=== PATIENT | male | born 1950 | race Caucasian/White ===

== ENCOUNTER 2023-09-26 14:24 | Inpatient (IN) ==
[2023-09-26] MEDS ORDERED: IOPAMIDOL 100 ML BOTTLE IV ONE (14:25)
[2023-09-26] MEDS ORDERED: DILTIAZEM 25 MG/5 ML VIAL IV ONE ×3 (14:28→14:49)
[2023-09-26 14:40] LABS: POC Calcium, Ionized 0.92 (1.16-1.32); POC Creatinine 1.5 (0.6-1.2); POC Potassium 3.9 (3.3-5.1)
[2023-09-26 14:46] LABS: POC Calcium, Ionized 0.93 (1.16-1.32); POC Creatinine 1.6 (0.6-1.2); POC Potassium 3.8 (3.3-5.1)
[2023-09-26 14:48] LABS: POC INR 2.8 (0.8-1.2); POC Pro Time 32.2 (11.9-14.5)
[2023-09-26] MEDS ORDERED: ASPIRIN 81 MG TAB.CHEW CHEWED ONE (14:58)
[2023-09-26] MEDS ORDERED: 0.9 % SODIUM CHLORIDE 1,000 ML IV ONE (14:58)
[2023-09-26] MEDS ORDERED: OSELTAMIVIR PHOSPHATE 75 MG CAPSULE PO ONE (15:04)
[2023-09-26 15:24] LABS: Basophils # (Auto) 0.05 K/mcL (0.00-0.30); Basophils % (Auto) 0.2 % (0.0-2.0); Eosinophils # (Auto) 0 K/mcL (0.00-0.70); Eosinophils % (Auto) 0 % (0.0-7.0); Hematocrit 46.5 % (40.1-51.0); Hemoglobin 16.2 g/dL (13.7-17.5); Lymphocytes # (Auto) 1.26 K/mcL (1.50-4.80); Lymphocytes % (Auto) 6.2 % (15.5-49.0); Mean Cell Volume 88.9 fL (80.0-100.0); Mean Corpuscular HGB Conc 34.8 g/dL (31.0-36.0); Mean Platelet Volume 10.6 fL (8.8-12.5); Monocytes # (Auto) 1.83 K/mcL (0.10-0.90); Platelet Count 126 K/mcL (140-440); RBC 5.23 M/mcL (4.63-6.08); Red Cell Distribution Width 12.7 % (11.5-14.5); WBC 20.4 K/mcL (4.5-11.0)
[2023-09-26] MEDS ORDERED: cefTRIAXone 2 GM in DEXTROSE 5% IN WATER 50 ML IV ONE (15:25)
[2023-09-26] MEDS ORDERED: AZITHROMYCIN 250 MG TABLET PO ONE (15:25)
[2023-09-26 15:49] LABS: Neutrophils % (Auto) 81.8 % (38.0-78.0)
[2023-09-26 16:04] LABS: ALT/SGPT 37 U/L (<40); AST/SGOT 233 U/L (<40); Albumin 3.6 gm/dL (3.2-5.2); Alkaline Phosphatase 80 U/L (39-117); Bilirubin,Direct 0.5 mg/dL (<0.3); Bilirubin,Total 3.3 mg/dL (0.1-1.0); Globulin 3.5 gm/dL (2.2-3.7)
[2023-09-26] MEDS ORDERED: IPRATROPIUM/ALBUTEROL 3 ML AMPUL.NEB NEB ONE (16:08)
[2023-09-26] MEDS ORDERED: DILTIAZEM 125 MG in DEXTROSE 5% IN WATER 100 ML IV SCH (16:15)
[2023-09-26] MEDS ORDERED: SENNOSIDES 1 TABLET PO PRN (19:34)
[2023-09-26] MEDS ORDERED: BISACODYL 10 MG SUPP.RECT PR PRN (19:34)
[2023-09-26] MEDS ORDERED: ONDANSETRON 4 MG/2 ML VIAL IV PRN (19:34)
[2023-09-26] MEDS ORDERED: DEXTROSE 50% 50 ML VIAL IV PRN (19:34)
[2023-09-26] MEDS ORDERED: DEXTROSE 31 GM ORAL.SUSP PO PRN (19:34)
[2023-09-26 19:37] LABS: Appearance,Urine CLOUDY (Clear); Bilirubin,Urine Negative (Negative); Color,Urine Brown; Culture Indicated,Urine Yes; Glucose,Urine (UA) Negative (Negative); Ketones,Urine 5 mg/dL (Negative); Leukocyte Esterase,Urine Negative /uL (Negative); Mucus,Urine FEW /hpf; Nitrate,Urine Negative (Negative); Protein,Urine 100 mg/dL (Negative); Specific Gravity,Urine 1.021 (1.000-1.035); Urine Amorphous Crystals FEW /hpf; Urine Blood >=1.0 mg/dL (Negative); Urine Budding Yeast MANY /hpf; Urine Hyaline Cast 7 /lph (0-2); Urine RBC 2 /hpf (0-3); Urine Squamous Epithelial Cell 2 /hpf (0-4); Urine WBC 30 /hpf (0-4); Urobilinogen,Urine Negative
[2023-09-26] MEDS: IPRATROPIUM/ALBUTEROL 3 ML AMPUL.NEB NEB SCH (20:39)
[2023-09-26] MEDS: NICOTINE 21 MG PATCH TOPICAL SCH ×2 (20:59→21:00)
[2023-09-26] MEDS: INSULIN LISPRO 1 UNIT/0.01 ML UNIT SQ SCH (21:02)
[2023-09-26] MEDS ORDERED: METOPROLOL TARTRATE 5 MG/5 ML VIAL IV ONE (21:32)
[2023-09-26] MEDS: 0.9 % SODIUM CHLORIDE 10 ML SYRINGE IV SCH (21:35)
[2023-09-26] MEDS: METOPROLOL TARTRATE 5 MG/5 ML VIAL IV PRN (21:35)
[2023-09-26] MEDS: ACETAMINOPHEN 325 MG TABLET PO PRN (23:27)
[2023-09-26] MEDS ORDERED: DILTIAZEM 125 MG/25 ML VIAL IV ONE (23:38)
[2023-09-26] MEDS: DILTIAZEM 125 MG in DEXTROSE 5% IN WATER 100 ML IV SCH (23:52)
[2023-09-27] MEDS: PANTOPRAZOLE 40 MG TABLET PO SCH (07:17)
[2023-09-27] MEDS: 0.9 % SODIUM CHLORIDE 10 ML SYRINGE IV SCH ×3 (07:17→20:14)
[2023-09-27 07:47] LABS: ALT/SGPT 43 U/L (<40); AST/SGOT 166 U/L (<40); Albumin 2.8 gm/dL (3.2-5.2); Albumin/Globulin Ratio 0.8 (1.0-2.3); Alkaline Phosphatase 79 U/L (39-117); Basophils # (Auto) 0.08 K/mcL (0.00-0.30); Basophils % (Auto) 0.5 % (0.0-2.0); Bilirubin,Total 1.7 mg/dL (0.1-1.0); Blood Urea Nitrogen 29 mg/dL (8-23); Calcium 8.2 mg/dL (8.6-10.4); Carbon Dioxide 19 mmol/L (22-30); Chloride 98 mmol/L (96-108); Eosinophils # (Auto) 0 K/mcL (0.00-0.70); Eosinophils % (Auto) 0 % (0.0-7.0); Globulin 3.5 gm/dL (2.2-3.7); Glomerular Filtration Rate 83; Glucose 286 mg/dL (70-105); Hematocrit 43.5 % (40.1-51.0); Hemoglobin 14.8 g/dL (13.7-17.5); Lymphocytes % (Auto) 4.2 % (15.5-49.0); Mean Cell Volume 89.9 fL (80.0-100.0); Mean Platelet Volume 11.3 fL (8.8-12.5); Monocytes % (Auto) 7.2 % (1.0-12.0); Platelet Count 110 K/mcL (140-440); RBC 4.84 M/mcL (4.63-6.08); Red Cell Distribution Width 12.8 % (11.5-14.5); WBC 16.6 K/mcL (4.5-11.0)
[2023-09-27] MEDS: INSULIN LISPRO 1 UNIT/0.01 ML UNIT SQ SCH ×4 (07:55→20:14)
[2023-09-27] MEDS: IPRATROPIUM/ALBUTEROL 3 ML AMPUL.NEB NEB SCH ×3 (08:38→23:50)
[2023-09-27] MEDS: NICOTINE 21 MG PATCH TOPICAL SCH (08:39)
[2023-09-27 09:00] LABS: Neutrophils % (Auto) 87.3 % (38.0-78.0)
[2023-09-27] MEDS ORDERED: VANCOMYCIN PER PHARMACY IV SCH (09:29)
[2023-09-27] MEDS: METOPROLOL TARTRATE 5 MG/5 ML VIAL IV PRN ×2 (09:29→13:34)
[2023-09-27] MEDS: cefTRIAXone 2 GM in DEXTROSE 5% IN WATER 50 ML IV SCH (09:29)
[2023-09-27] MEDS: DILTIAZEM 125 MG in DEXTROSE 5% IN WATER 100 ML IV SCH ×2 (10:37→20:07)
[2023-09-27] MEDS: VANCOMYCIN 1,250 MG in 0.9 % SODIUM CHLORIDE 500 ML IV SCH ×2 (10:37→20:00)
[2023-09-27] MEDS: AZITHROMYCIN 500 MG in DEXTROSE 5% IN WATER 250 ML IV SCH (12:28)
[2023-09-27] MEDS ORDERED: OSELTAMIVIR PHOSPHATE 75 MG CAPSULE PO SCH (15:00)
[2023-09-27] MEDS: OSELTAMIVIR PHOSPHATE 75 MG CAPSULE PO SCH (16:31)
[2023-09-27] MEDS: BISOPROLOL 5 MG TABLET PO SCH (18:18)
[2023-09-27] MEDS: ACETAMINOPHEN 325 MG TABLET PO PRN (19:57)
[2023-09-27] MEDS: APIXABAN 5 MG TABLET PO SCH (20:14)
[2023-09-27] MEDS: TAMSULOSIN 0.4 MG CAPSULE PO SCH (20:14)
[2023-09-28] MEDS: OSELTAMIVIR PHOSPHATE 75 MG CAPSULE PO SCH ×3 (00:07→22:20)
[2023-09-28] MEDS ORDERED: DILTIAZEM 125 MG/25 ML VIAL IV ONE (03:23)
[2023-09-28] MEDS: DILTIAZEM 125 MG in DEXTROSE 5% IN WATER 100 ML IV SCH ×2 (03:33→12:00)
[2023-09-28] MEDS ORDERED: HALOPERIDOL LACTATE 5 MG/ML VIAL IM ONE (04:03)
[2023-09-28] MEDS ORDERED: HALOPERIDOL LACTATE 5 MG/ML VIAL ONE (04:04)
[2023-09-28] MEDS ORDERED: OLANZapine 10 MG VIAL IM ONE (04:33)
[2023-09-28] MEDS ORDERED: OLANZapine 10 MG VIAL ONE ×2 (04:36→22:27)
[2023-09-28] MEDS: METOPROLOL TARTRATE 5 MG/5 ML VIAL IV PRN ×4 (05:23→20:28)
[2023-09-28] MEDS: 0.9 % SODIUM CHLORIDE 10 ML SYRINGE IV SCH ×3 (05:38→22:37)
[2023-09-28] MEDS: HYDROmorphone 0.5 MG/0.5 ML SYRINGE IV PRN ×5 (06:48→20:47)
[2023-09-28 07:07] LABS: Basophils # (Auto) 0.06 K/mcL (0.00-0.30); Basophils % (Auto) 0.3 % (0.0-2.0); Eosinophils # (Auto) 0 K/mcL (0.00-0.70); Eosinophils % (Auto) 0 % (0.0-7.0); Hematocrit 44.6 % (40.1-51.0); Hemoglobin 15.1 g/dL (13.7-17.5); Lymphocytes # (Auto) 0.42 K/mcL (1.50-4.80); Lymphocytes % (Auto) 2.3 % (15.5-49.0); Mean Cell Volume 88.8 fL (80.0-100.0); Mean Corpuscular HGB Conc 33.9 g/dL (31.0-36.0); Monocytes # (Auto) 0.85 K/mcL (0.10-0.90); Monocytes % (Auto) 4.7 % (1.0-12.0); Neutrophils % (Auto) 92.3 % (38.0-78.0); Platelet Count 132 K/mcL (140-440); RBC 5.02 M/mcL (4.63-6.08); Red Cell Distribution Width 12.7 % (11.5-14.5); WBC 18.2 K/mcL (4.5-11.0)
[2023-09-28] MEDS: INSULIN LISPRO 1 UNIT/0.01 ML UNIT SQ SCH ×3 (07:53→17:04)
[2023-09-28] MEDS ORDERED: cefTRIAXone 2 GM VIAL ONE (08:39)
[2023-09-28] MEDS: IPRATROPIUM/ALBUTEROL 3 ML AMPUL.NEB NEB SCH ×3 (08:40→22:51)
[2023-09-28] MEDS: NICOTINE 21 MG PATCH TOPICAL SCH (08:48)
[2023-09-28] MEDS: glipiZIDE 5 MG TAB.XL.24H PO SCH (08:57)
[2023-09-28] MEDS: ASPIRIN 81 MG TAB.CHEW PO SCH (08:57)
[2023-09-28] MEDS: PANTOPRAZOLE 40 MG TABLET PO SCH (08:57)
[2023-09-28] MEDS: sitaGLIPtin 100 MG TABLET PO SCH (08:58)
[2023-09-28] MEDS: ATORVASTATIN 40 MG TABLET PO SCH (08:58)
[2023-09-28] MEDS: APIXABAN 5 MG TABLET PO SCH (08:58)
[2023-09-28] MEDS: BISOPROLOL 5 MG TABLET PO SCH (08:58)
[2023-09-28] MEDS: ASCORBIC ACID 500 MG TABLET PO SCH (08:58)
[2023-09-28] MEDS: cefTRIAXone 2 GM in DEXTROSE 5% IN WATER 50 ML IV SCH (09:25)
[2023-09-28] MEDS: VANCOMYCIN 1,250 MG in 0.9 % SODIUM CHLORIDE 500 ML IV SCH ×2 (09:28→23:03)
[2023-09-28 09:44] LABS: ALT/SGPT 58 U/L (<40); AST/SGOT 113 U/L (<40); Albumin 2.9 gm/dL (3.2-5.2); Albumin/Globulin Ratio 0.9 (1.0-2.3); Alkaline Phosphatase 100 U/L (39-117); Bilirubin,Total 1.6 mg/dL (0.1-1.0); Blood Urea Nitrogen 23 mg/dL (8-23); Carbon Dioxide 20 mmol/L (22-30); Chloride 94 mmol/L (96-108); Globulin 3.4 gm/dL (2.2-3.7); Glomerular Filtration Rate 87; Glucose 305 mg/dL (70-105)
[2023-09-28] MEDS: AZITHROMYCIN 500 MG in DEXTROSE 5% IN WATER 250 ML IV SCH (10:59)
[2023-09-28] MEDS ORDERED: AMIODARONE 150 MG in DEXTROSE 5% IN WATER 50 ML IV ONE (11:45)
[2023-09-28] MEDS ORDERED: AMIODARONE 360 MG in PREMIX 1 BAG IV SCH (11:45)
[2023-09-28] MEDS ORDERED: AMIODARONE 360 MG/200 ML BAG IV ONE ×2 (11:49→17:23)
[2023-09-28] MEDS ORDERED: AMIODARONE 150 MG/3 ML VIAL IV ONE (11:49)
[2023-09-28] MEDS: HALOPERIDOL LACTATE 5 MG/ML VIAL IV PRN ×2 (11:58→18:17)
[2023-09-28] MEDS: OLANZapine 10 MG VIAL IM PRN (17:11)
[2023-09-28] MEDS: AMIODARONE 360 MG in PREMIX 1 BAG IV SCH (17:54)
[2023-09-28] MEDS ORDERED: ACETAMINOPHEN 1,000 MG/100 ML BAG IV PRN (21:53)
[2023-09-28] MEDS: TAMSULOSIN 0.4 MG CAPSULE PO SCH (22:22)
[2023-09-28] MEDS ORDERED: OLANZapine 10 MG VIAL IM SCH (22:30)
[2023-09-28] MEDS: ENOXAPARIN 80 MG/0.8 ML SYRINGE SQ SCH (22:36)
[2023-09-28] MEDS ORDERED: LIDOCAINE 2% URO-JET 10 ML JEL.PF.APP UR ONE (23:38)
[2023-09-29] MEDS: METOPROLOL TARTRATE 5 MG/5 ML VIAL IV PRN (00:32)
[2023-09-29] MEDS: INSULIN LISPRO 1 UNIT/0.01 ML UNIT SQ SCH ×5 (00:52→21:16)
[2023-09-29] MEDS: HYDROmorphone 0.5 MG/0.5 ML SYRINGE IV PRN ×4 (01:04→22:39)
[2023-09-29] MEDS: HALOPERIDOL LACTATE 5 MG/ML VIAL IV PRN ×2 (01:51→22:45)
[2023-09-29] MEDS: OLANZapine 10 MG VIAL IM PRN (03:02)
[2023-09-29] MEDS: AMIODARONE 360 MG in PREMIX 1 BAG IV SCH ×2 (05:35→16:01)
[2023-09-29] MEDS ORDERED: AMIODARONE 360 MG/200 ML BAG IV ONE ×2 (05:36→15:52)
[2023-09-29] MEDS: 0.9 % SODIUM CHLORIDE 10 ML SYRINGE IV SCH ×3 (06:42→21:38)
[2023-09-29 07:01] LABS: Basophils # (Auto) 0.02 K/mcL (0.00-0.30); Basophils % (Auto) 0.2 % (0.0-2.0); Eosinophils # (Auto) 0 K/mcL (0.00-0.70); Eosinophils % (Auto) 0 % (0.0-7.0); Hematocrit 39.7 % (40.1-51.0); Hemoglobin 13.4 g/dL (13.7-17.5); Lymphocytes # (Auto) 0.67 K/mcL (1.50-4.80); Lymphocytes % (Auto) 5.9 % (15.5-49.0); Mean Cell Volume 89.4 fL (80.0-100.0); Mean Corpuscular HGB Conc 33.8 g/dL (31.0-36.0); Mean Platelet Volume 11.3 fL (8.8-12.5); Monocytes # (Auto) 1.11 K/mcL (0.10-0.90); Monocytes % (Auto) 9.8 % (1.0-12.0); Platelet Count 125 K/mcL (140-440); RBC 4.44 M/mcL (4.63-6.08); Red Cell Distribution Width 12.7 % (11.5-14.5); WBC 11.3 K/mcL (4.5-11.0)
[2023-09-29 07:42] LABS: ALT/SGPT 54 U/L (<40); AST/SGOT 75 U/L (<40); Albumin 2.5 gm/dL (3.2-5.2); Albumin/Globulin Ratio 0.7 (1.0-2.3); Alkaline Phosphatase 87 U/L (39-117); Bilirubin,Total 1.3 mg/dL (0.1-1.0); Blood Urea Nitrogen 22 mg/dL (8-23); Calcium 7.9 mg/dL (8.6-10.4); Carbon Dioxide 22 mmol/L (22-30); Chloride 102 mmol/L (96-108); Globulin 3.4 gm/dL (2.2-3.7); Glomerular Filtration Rate 87; Glucose 286 mg/dL (70-105)
[2023-09-29] MEDS: ENOXAPARIN 80 MG/0.8 ML SYRINGE SQ SCH ×2 (08:42→20:32)
[2023-09-29] MEDS: IPRATROPIUM/ALBUTEROL 3 ML AMPUL.NEB NEB SCH ×3 (09:00→21:39)
[2023-09-29] MEDS: cefTRIAXone 2 GM in DEXTROSE 5% IN WATER 50 ML IV SCH (09:22)
[2023-09-29] MEDS: METOPROLOL TARTRATE 5 MG/5 ML VIAL IV SCH ×3 (09:53→21:36)
[2023-09-29] MEDS: NICOTINE 21 MG PATCH TOPICAL SCH (09:57)
[2023-09-29] MEDS: VANCOMYCIN 1,250 MG in 0.9 % SODIUM CHLORIDE 500 ML IV SCH ×2 (10:26→21:16)
[2023-09-29] MEDS: PANTOPRAZOLE 40 MG TABLET PO SCH (10:29)
[2023-09-29] MEDS: ASPIRIN 81 MG TAB.CHEW PO SCH (10:30)
[2023-09-29] MEDS: sitaGLIPtin 100 MG TABLET PO SCH (10:30)
[2023-09-29] MEDS: ASCORBIC ACID 500 MG TABLET PO SCH (10:30)
[2023-09-29] MEDS: ATORVASTATIN 40 MG TABLET PO SCH (10:30)
[2023-09-29] MEDS: BISOPROLOL 5 MG TABLET PO SCH (10:30)
[2023-09-29] MEDS: glipiZIDE 5 MG TAB.XL.24H PO SCH (10:30)
[2023-09-29] MEDS: AZITHROMYCIN 500 MG in DEXTROSE 5% IN WATER 250 ML IV SCH (11:08)
[2023-09-29] MEDS: OSELTAMIVIR PHOSPHATE 75 MG CAPSULE PO SCH ×2 (12:48→20:30)
[2023-09-29] MEDS ORDERED: FLUCONAZOLE 800 MG/400 ML BAG IV SCH (15:45)
[2023-09-29] MEDS ORDERED: FLUCONAZOLE 400 MG/200 ML BAG IV ONE (15:45)
[2023-09-29] MEDS ORDERED: LACTOPEROXI/GLUC OXID/POT THIO 1 EACH GEL..EA. TOPICAL PRN (16:25)
[2023-09-29] MEDS: LORazepam 0.5 MG TABLET PO PRN (20:30)
[2023-09-29] MEDS: TAMSULOSIN 0.4 MG CAPSULE PO SCH (20:30)
[2023-09-29] MEDS: traZODone HCL 50 MG TABLET PO PRN (20:31)
[2023-09-29] MEDS: DILTIAZEM 25 MG/5 ML VIAL IV PRN (22:58)
[2023-09-30] MEDS: OLANZapine 10 MG VIAL IM PRN ×2 (01:11→22:42)
[2023-09-30] MEDS ORDERED: AMIODARONE 360 MG/200 ML BAG IV ONE ×2 (02:18→12:55)
[2023-09-30] MEDS: AMIODARONE 360 MG in PREMIX 1 BAG IV SCH ×2 (02:21→12:58)
[2023-09-30] MEDS: METOPROLOL TARTRATE 5 MG/5 ML VIAL IV SCH (02:48)
[2023-09-30] MEDS ORDERED: DIGOXIN 500 MCG/2 ML AMPUL IV ONE ×2 (03:04→03:09)
[2023-09-30] MEDS ORDERED: METOPROLOL TARTRATE 5 MG/5 ML VIAL IV ONE (04:40)
[2023-09-30] MEDS: METOPROLOL TARTRATE 5 MG/5 ML VIAL IV PRN ×3 (04:43→23:46)
[2023-09-30 06:40] LABS: Basophils # (Auto) 0.04 K/mcL (0.00-0.30); Basophils % (Auto) 0.3 % (0.0-2.0); Eosinophils # (Auto) 0.01 K/mcL (0.00-0.70); Eosinophils % (Auto) 0.1 % (0.0-7.0); Hematocrit 44.1 % (40.1-51.0); Hemoglobin 14.4 g/dL (13.7-17.5); Lymphocytes # (Auto) 0.63 K/mcL (1.50-4.80); Lymphocytes % (Auto) 5.2 % (15.5-49.0); Mean Cell Volume 93.4 fL (80.0-100.0); Mean Corpuscular HGB Conc 32.7 g/dL (31.0-36.0); Mean Platelet Volume 11.4 fL (8.8-12.5); Monocytes # (Auto) 1.38 K/mcL (0.10-0.90); Monocytes % (Auto) 11.5 % (1.0-12.0); Neutrophils % (Auto) 81.5 % (38.0-78.0); Platelet Count 113 K/mcL (140-440); RBC 4.72 M/mcL (4.63-6.08); Red Cell Distribution Width 12.9 % (11.5-14.5); WBC 12.1 K/mcL (4.5-11.0)
[2023-09-30 07:12] LABS: ALT/SGPT 51 U/L (<40); AST/SGOT 48 U/L (<40); Albumin 2.4 gm/dL (3.2-5.2); Albumin/Globulin Ratio 0.6 (1.0-2.3); Alkaline Phosphatase 86 U/L (39-117); Bilirubin,Direct 0.4 mg/dL (<0.3); Bilirubin,Total 1.2 mg/dL (0.1-1.0); Blood Urea Nitrogen 19 mg/dL (8-23); Calcium 8.2 mg/dL (8.6-10.4); Carbon Dioxide 19 mmol/L (22-30); Chloride 101 mmol/L (96-108); Globulin 3.7 gm/dL (2.2-3.7); Glomerular Filtration Rate 92; Glucose 228 mg/dL (70-105); Lactate Dehydrogenase 327 U/L (135-225); Phosphorous 2.4 mg/dL (2.5-4.5); Triglycerides 129 mg/dL (<150); Uric Acid 7.9 mg/dL (2.5-8.0)
[2023-09-30] MEDS: IPRATROPIUM/ALBUTEROL 3 ML AMPUL.NEB NEB SCH ×3 (07:32→20:30)
[2023-09-30] MEDS: 0.9 % SODIUM CHLORIDE 10 ML SYRINGE IV SCH ×4 (07:35→21:08)
[2023-09-30] MEDS: PANTOPRAZOLE 40 MG TABLET PO SCH (07:35)
[2023-09-30] MEDS ORDERED: ALBUMIN HUMAN 12.5 GM/50 ML VIAL IV ONE (08:18)
[2023-09-30] MEDS ORDERED: FUROSEMIDE 40 MG/4 ML VIAL IV ONE (08:18)
[2023-09-30] MEDS: INSULIN LISPRO 1 UNIT/0.01 ML UNIT SQ SCH ×4 (08:33→20:15)
[2023-09-30] MEDS: glipiZIDE 5 MG TAB.XL.24H PO SCH (08:34)
[2023-09-30] MEDS: ATORVASTATIN 40 MG TABLET PO SCH (09:07)
[2023-09-30] MEDS: ASPIRIN 81 MG TAB.CHEW PO SCH (09:07)
[2023-09-30] MEDS: sitaGLIPtin 100 MG TABLET PO SCH (09:07)
[2023-09-30] MEDS: ASCORBIC ACID 500 MG TABLET PO SCH (09:08)
[2023-09-30] MEDS: HALOPERIDOL LACTATE 5 MG/ML VIAL IV PRN ×2 (09:11→21:08)
[2023-09-30] MEDS: ENOXAPARIN 80 MG/0.8 ML SYRINGE SQ SCH ×2 (09:14→20:14)
[2023-09-30] MEDS: cefTRIAXone 2 GM in DEXTROSE 5% IN WATER 50 ML IV SCH (09:15)
[2023-09-30] MEDS: DIGOXIN 500 MCG/2 ML AMPUL IV SCH ×2 (09:22→12:59)
[2023-09-30] MEDS: NICOTINE 21 MG PATCH TOPICAL SCH (09:23)
[2023-09-30] MEDS: FLUCONAZOLE 100 MG TABLET PO SCH (09:38)
[2023-09-30] MEDS: OSELTAMIVIR PHOSPHATE 75 MG CAPSULE PO SCH ×2 (09:40→20:15)
[2023-09-30] MEDS: BISOPROLOL 5 MG TABLET PO SCH (09:41)
[2023-09-30] MEDS ORDERED: DIAZEPAM 10 MG/2 ML SYRINGE IV ONE (10:38)
[2023-09-30] MEDS: AZITHROMYCIN 500 MG in DEXTROSE 5% IN WATER 250 ML IV SCH (11:02)
[2023-09-30] MEDS: INSULIN GLARGINE, HUMAN 1 UNIT/0.01 ML SQ SCH (12:29)
[2023-09-30] MEDS: VANCOMYCIN 1,250 MG in 0.9 % SODIUM CHLORIDE 500 ML IV SCH ×2 (12:31→20:16)
[2023-09-30] MEDS ORDERED: SODIUM CHLORIDE FOR INHALATION INH ONE (15:45)
[2023-09-30] MEDS: traZODone HCL 50 MG TABLET PO PRN (20:15)
[2023-09-30] MEDS: TAMSULOSIN 0.4 MG CAPSULE PO SCH (20:15)
[2023-09-30] MEDS: HYDROmorphone 0.5 MG/0.5 ML SYRINGE IV PRN ×2 (20:18→23:21)
[2023-09-30] MEDS: LORazepam 0.5 MG TABLET PO PRN (21:08)
[2023-09-30] MEDS: DILTIAZEM 25 MG/5 ML VIAL IV PRN (21:30)
[2023-10-01] MEDS ORDERED: AMIODARONE 360 MG/200 ML BAG IV ONE (01:05)
[2023-10-01] MEDS: AMIODARONE 360 MG in PREMIX 1 BAG IV SCH (01:07)
[2023-10-01] MEDS: METOPROLOL TARTRATE 5 MG/5 ML VIAL IV PRN (01:38)
[2023-10-01] MEDS: HYDROmorphone 0.5 MG/0.5 ML SYRINGE IV PRN (02:11)
[2023-10-01] MEDS: 0.9 % SODIUM CHLORIDE 10 ML SYRINGE IV SCH (05:53)
[2023-10-01] MEDS: DILTIAZEM 25 MG/5 ML VIAL IV PRN (06:50)
[2023-10-01] MEDS: PANTOPRAZOLE 40 MG TABLET PO SCH ×2 (06:50→07:56)
[2023-10-01] MEDS: glipiZIDE 5 MG TAB.XL.24H PO SCH ×2 (06:50→07:56)
[2023-10-01] MEDS: IPRATROPIUM/ALBUTEROL 3 ML AMPUL.NEB NEB SCH ×2 (07:25→09:04)
[2023-10-01 07:47] LABS: Basophils # (Auto) 0.05 K/mcL (0.00-0.30); Basophils % (Auto) 0.4 % (0.0-2.0); Eosinophils # (Auto) 0.02 K/mcL (0.00-0.70); Eosinophils % (Auto) 0.2 % (0.0-7.0); Hematocrit 42.9 % (40.1-51.0); Hemoglobin 14.5 g/dL (13.7-17.5); Lymphocytes # (Auto) 0.91 K/mcL (1.50-4.80); Mean Cell Volume 90.1 fL (80.0-100.0); Mean Corpuscular HGB Conc 33.8 g/dL (31.0-36.0); Mean Platelet Volume 10.6 fL (8.8-12.5); Monocytes # (Auto) 1.02 K/mcL (0.10-0.90); Monocytes % (Auto) 7.9 % (1.0-12.0); Neutrophils % (Auto) 83.3 % (38.0-78.0); Platelet Count 169 K/mcL (140-440); RBC 4.76 M/mcL (4.63-6.08); Red Cell Distribution Width 12.9 % (11.5-14.5)
[2023-10-01 07:56] LABS: ALT/SGPT 41 U/L (<40); AST/SGOT 32 U/L (<40); Albumin 2.3 gm/dL (3.2-5.2); Albumin/Globulin Ratio 0.7 (1.0-2.3); Alkaline Phosphatase 78 U/L (39-117); Bilirubin,Direct 0.4 mg/dL (<0.3); Bilirubin,Total 1.4 mg/dL (0.1-1.0); Blood Urea Nitrogen 17 mg/dL (8-23); Carbon Dioxide 26 mmol/L (22-30); Chloride 101 mmol/L (96-108); Globulin 3.4 gm/dL (2.2-3.7); Glomerular Filtration Rate 92; Glucose 215 mg/dL (70-105); Lactate Dehydrogenase 220 U/L (135-225); Triglycerides 134 mg/dL (<150); Uric Acid 7.5 mg/dL (2.5-8.0)
[2023-10-01] MEDS ORDERED: IPRATROPIUM/ALBUTEROL 3 ML AMPUL.NEB NEB ONE (08:55)
[2023-10-01] MEDS ORDERED: ACETYLCYSTEINE 800 MG/4 ML VIAL ONE (08:57)
[2023-10-01] MEDS ORDERED: POTASSIUM PHOSPHATE 40 MEQ in DEXTROSE 5% IN WATER 500 ML IV SCH (09:00)
[2023-10-01] MEDS: cefTRIAXone 2 GM in DEXTROSE 5% IN WATER 50 ML IV SCH (09:03)
[2023-10-01] MEDS: ENOXAPARIN 80 MG/0.8 ML SYRINGE SQ SCH (09:03)
[2023-10-01] MEDS: INSULIN GLARGINE, HUMAN 1 UNIT/0.01 ML SQ SCH (09:03)
[2023-10-01] MEDS: INSULIN LISPRO 1 UNIT/0.01 ML UNIT SQ SCH (09:03)
[2023-10-01] MEDS: FLUCONAZOLE 100 MG TABLET PO SCH (09:05)
[2023-10-01] MEDS: OSELTAMIVIR PHOSPHATE 75 MG CAPSULE PO SCH (09:05)
[2023-10-01] MEDS: ATORVASTATIN 40 MG TABLET PO SCH (09:05)
[2023-10-01] MEDS: BISOPROLOL 5 MG TABLET PO SCH (09:05)
[2023-10-01] MEDS: ASCORBIC ACID 500 MG TABLET PO SCH (09:05)
[2023-10-01] MEDS: ASPIRIN 81 MG TAB.CHEW PO SCH (09:05)
[2023-10-01] MEDS: sitaGLIPtin 100 MG TABLET PO SCH (09:05)
[2023-10-01] MEDS ORDERED: MIDAZOLAM 5 MG/5 ML VIAL IV ONE (10:00)
[2023-10-01] MEDS ORDERED: ONDANSETRON 4 MG/2 ML VIAL IV SCH (10:05)
[2023-10-01] MEDS ORDERED: fentaNYL 100 MCG/2 ML VIAL IV SCH (10:05)
[2023-10-01] MEDS ORDERED: DEXMEDETOMIDINE 100 ML IV ONE (10:15)
[2023-10-01] MEDS ORDERED: DEXMEDETOMIDINE 400 MCG in PREMIX 1 BAG IV SCH (10:15)
[2023-10-01] MEDS: NICOTINE 21 MG PATCH TOPICAL SCH (10:54)
[2023-10-01] MEDS: VANCOMYCIN 1,250 MG in 0.9 % SODIUM CHLORIDE 500 ML IV SCH (10:54)
[2023-10-01] MEDS ORDERED: LACTATED RINGERS 500 ML IV SCH (11:45)
[2023-10-01 12:54] VITALS: TEMP 98.9; O2SAT 96
[2023-10-01] MEDS ORDERED: CHLORHEXIDINE GLUCONATE 15 ML UDC SWABMOUTH SCH (21:00)
== END 2023-10-01 12:01 | disposition short-term general hospital (02) | DRG 871 ==
LOC: ED 14:24 → ICU 19:16
PROVIDERS: ADMIT Internal Medicine; ATTEND Internal Medicine